=== PATIENT | male | born 1985 | race Caucasian/White ===

== ENCOUNTER 2020-05-19 11:56 | Emergency (ER) | payer SELFPAY ==
[2020-05-19 12:20] VITALS: BP 127/83; PULSE 130; RESP 16; TEMP 36.9; O2SAT 99; BMI 23.6
--- NOTE | 2020-05-19 12:23 | ED_ITS ---
HPI - Dental/Oral General: Stated complaint: dental swelling Time Seen by Provider: 05/19/20 12:05 History of Present Illness: HPI Narrative: Has some swelling right side lower jaw has dental caries this been going on with the swelling for a couple days caries present for a long time MD Complaint: tooth pain Teeth map: 1. Onset (ago): day(s) Duration: constant Severity: moderate Severity scale (1-10): 5 Relieving factors: nothing Exacerbating factors: nothing Context: history of dental caries and poor dental care Associated symptoms: Reports other (Lymphadenopathy right side. Anterior); Denies fever(s) Review of Systems Const: Denies: fever(s), chills or body aches Eyes: Denies: change in vision or blurry vision ENMT: Reports: dental pain and other (Swelling underneath right jaw x2 days); Denies: throat pain or nasal congestion Card: Denies: chest pain or dyspnea on exertion Resp: Denies: dyspnea, productive cough or non-productive cough GI: Denies: abdominal pain, nausea or vomiting : Denies: difficulty urinating Musc: Denies: extremity pain Skin/Breast: Denies: rash Neuro: Denies: headache(s) Psych: Denies: anxiety or depression Kobe/Lymph: Denies: easy bruising Physical Exam Const: COMMON NORMALS: no acute distress, average body habitus and patient oriented x3 HENMT: COMMON NORMALS: normocephalic HEAD & SCALP: normal to inspection and normocephalic FACE & SINUS: normal facial exam TEETH & GINGIVA IMAGES: 1. Caries with lymphadenopathy right side underneath the jaw Eye: COMMON NORMALS: conjunctivae normal GENERAL EYE: appearance normal, both eyes and all related structures CONJUNCTIVA: Yes conjunctivae normal Neck/C-Spine: COMMON NORMALS: no JVD Chest: COMMONS NORMALS: normal inspection of the chest Resp: COMMON NORMALS: normal respiratory effort Cardio: COMMON NORMALS: no JVD Extremity: COMMON NORMALS: normal to inspection and full ROM Neuro: COMMON NORMALS: patient oriented x3 Discharge Plan Discharge Patient Disposition: Home, Self-Care Clinical Impression: Dental abscess Condition: Stable Prescriptions: New clindamycin HCl 300 mg capsule 300 mg PO TID 7 Days Qty: 21 RF: 0 tramadol 50 mg tablet 50 mg PO Q6H PRN (Reason: pain) Qty: 14 RF: 0 Discharge Orders: Discharge Order (Routine); Ordered 05/19/20 Ordered By: Dante Pulido Discharge Diet: Usual diet Discharge Activity: Resume usual activity Patient Instructions: Dental Abscess (ED) Activity Restrictions/Additional Instructions: Follow-up with medical provider as directed. Take medications as prescribed. Return to the ER or your medical provider if condition worsens. Please read and understand discharge instructions. If any questions ask please. Follow-up with dentist soon as possible Coding Level of Care Code ED Side Panel Padder for Kellie Young
[2020-05-19 12:29] VITALS: BP 127/83; PULSE 101; RESP 16; TEMP 36.9; O2SAT 98
== END 2020-05-19 12:31 | disposition home or self-care (01) ==
LOC: ER 16:05
PROVIDERS: Emergency Provider Nurse Practitioner Family
DX: K04.7 Periapical abscess without sinus (principal)
CPT/HCPCS: 12345; 99281; 99282

== ENCOUNTER 2020-05-29 23:34 | Emergency (ER) | payer SELFPAY ==
[2020-05-29 23:42] VITALS: BP 148/91; PULSE 111; RESP 18; TEMP 36.6; O2SAT 98; BMI 24.3
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
[2020-05-30] MEDS: iohexol 300 mg/mL 100 mL Btl IV (00:35)
[2020-05-30 00:54] VITALS: RESP 18
[2020-05-30] MEDS: morphine 4 mg/mL SDV 1 mL IVP (00:54)
[2020-05-30] MEDS: ondansetron 2 mg/ML SDV 2 mL 4 MG IVP (00:54)
[2020-05-30 01:35] VITALS: BP 127/62; PULSE 90; RESP 16; O2SAT 98
== END 2020-05-30 01:36 | disposition home or self-care (01) ==
PROVIDERS: Emergency Provider Physician Assistant
DX: M54.5 Low back pain (principal); S13.9XXA Sprain of joints and ligaments of unspecified parts of neck, initial encounter; R07.81 Pleurodynia; V89.2XXA Person injured in unspecified motor-vehicle accident, traffic, initial encounter
CPT/HCPCS: 12345; 70450; 71260; 72125; 72128; 72131; 74177; 96374; 96375; 99281; 99283; J2270; J2405; Q9967

== ENCOUNTER 2020-10-09 17:59 | Emergency (ER) | payer SELFPAY ==
[2020-10-09 18:15] VITALS: BP 153/119; PULSE 115; RESP 18; TEMP 36.3; O2SAT 99; BMI 25.1
--- NOTE | 2020-10-09 19:30 | W.ED.SKABFB ---
HPI - Skin/Abscess/Foreign Bdy General: Chief complaint: Skin/Abscess/Foreign Body Stated complaint: wounds on both arms Time Seen by Provider: 10/09/20 19:30 History of Present Illness: HPI narrative: Patient is a 34-year-old male comes to the ED with abscess on right and left arms. Patient admits to injecting drugs about 5 days ago. He says where he injected and are aware of these abscesses started to develop. Patient says he opened up abscess on left arm himself with a knife and he says purulent drainage came out. Denies any history of staph or MRSA. Associated symptoms: Deny chills, fever(s), nausea or vomiting Review of Systems Const: Denies: fever(s), chills or fatigue Eyes: Denies: change in vision or eye discomfort ENMT: Denies: throat pain, odynophagia, nasal discharge or nasal congestion Card: Denies: chest pain, palpitations, edema, swelling of feet/ankles, dyspnea on exertion or orthopnea Resp: Denies: dyspnea, productive cough or non-productive cough GI: Denies: abdominal pain, nausea, vomiting, diarrhea, constipation or hematochezia : Denies: flank pain, difficulty urinating, dysuria or hematuria Musc: Denies: neck pain, back pain or extremity swelling Skin/Breast: Reports: new lesions (1 abscess on right forearm and one abscess on left forearm.); Denies: rash Neuro: Denies: headache(s), numbness in extremities or weakness in extremities Physical Exam Const: COMMON NORMALS: patient oriented x3 and alert GENERAL APPEARANCE: cooperative and anxious (Patient appears anxious and is fidgety.) HENMT: COMMON NORMALS: normocephalic HEAD & SCALP: normocephalic MOUTH: Normal oral and palatal mucosa present THROAT: posterior oropharynx normal and uvula midline Eye: COMMON NORMALS: Equal, round and reactive pupils present PUPIL: Yes Equal, round and reactive pupils present Neck/C-Spine: COMMON NORMALS: supple GENERAL: Yes normal visual inspection Resp: COMMON NORMALS: normal respiratory effort, No retractions, No use of accessory muscles and clear to auscultation bilaterally AUSCULTATION: clear to auscultation bilaterally Cardio: COMMON NORMALS: regular rate, regular rhythm, S1 normal heart sound present, S2 normal heart sound present, No gallops present (Cardio), No clicks present (Cardio), No murmurs present (Cardio) and Peripheral pulses 2+ throughout RATE: regular rate RHYTHM: regular rhythm HEART SOUNDS: S1 normal heart sound present and S2 normal heart sound present PERIPHERAL PULSES: Peripheral pulses 2+ throughout GI: COMMON NORMALS: Normal to inspection, nondistended, normoactive bowel sounds present, Soft to palpation, non-tender and no masses PALPATION: Yes Soft to palpation : COMMON NORMALS: Yes no CVA tenderness BLADDER/KIDNEY EXAM: Yes no CVA tenderness Back/Pelvis: COMMON NORMALS: no CVA tenderness Extremity: NARRATIVE EXTREMITY EXAM: On right forearm patient is an abscess with surrounding erythema and warmth. It is fluctuant and not indurated. On the left forearm patient has an abscess that appears to have been opened up and now has 2 cm circular ulcer malodorous purulent drainage seen. There is surrounding erythema and warmth. GENERAL: Yes normal exam except as noted Neuro: COMMON NORMALS: patient oriented x3 and moves all extremities SENSORIUM/ORIENTATION: Yes alert Skin: NARRATIVE SKIN EXAM: On right forearm patient is an abscess with surrounding erythema and warmth. It is fluctuant and not indurated. On the left forearm patient has an abscess that appears to have been opened up and now has 2 cm circular ulcer malodorous purulent drainage seen. There is surrounding erythema and warmth. GENERAL SKIN EXAM: dry skin Procedures Abscess I/D Site: upper extremity Side (if applicable): right Sedation/analgesia: other (morphine 4mg iv) Local Anesthetic: lidocaine 1% and with epi Amount of anesthesia used (mL): 10 Technique: incised with #11 blade Amount of fluid expressed (mL): 8 (Malodorous purulent drainage) Irrigation: Yes Packing used?: none Course Vital Signs: Vital signs: Vital Signs Temperature 97.4 F L 10/09/20 18:15 Pulse Rate 96 10/10/20 00:05 Respiratory Rate 18 10/10/20 00:05 Blood Pressure 128/78 10/10/20 00:05 Pulse Oximetry 97 10/10/20 00:05 MDM - Skin/Abscess/Foreign Bdy MDM Narrative: Medical decision making narrative: Patient is a 34-year-old male comes to the ED with abscess on both right and left forearm. Patient mitts to being an IV drug user and says he recently injected drugs in area where both abscesses developed. patient cut into left forearm abscess himself and purulent drainage came out. He now has a small 2 cm circular ulcer on left forearm. Right forearm has a abscess that is fluctuant and not indurated with warmth, tenderness and erythema present. Abscess I&D was performed on right forearm and malodorous purulent drainage removed. White blood cell count 10.8 and rest of CBC and CMP were unremarkable. Blood cultures in the lab. Abscess culture for right and left forearm abscess pending in lab. Patient was given IV Vanco while here in the ED. I placed an order with home health care case manager patient be referred to wound care clinic. Patient was discharged and put on a prescription of clindamycin. Return to ED precautions given. He was told case management should be in care clinic. Patient understood and agreed with plan. Lab Data: Attestation: I reviewed the patient's lab results. Labs: Lab Results 10/09/20 10/09/20 Range/Units 20:00 20:00 WBC 10.8 H (4.0-10.0) 10^3/ uL RBC 4.06 L (4.1-5.3) 10^6/u L Hgb 12.9 (11.7-16.6) g/dL Hct 38.0 L (42.0-52.0) % MCV 93.6 (80-94) fL MCH 31.8 (28.0-34.0) pg MCHC 33.9 (30.0-36.0) g/dL RDW 11.9 L (12.1-15.1) % Plt Count 334 (130-400) 10^3/c mm MPV 11.1 H (7.4-10.4) fL Neut % (Auto) 73.6 % Lymph % (Auto) 15.7 % Graham % (Auto) 7.6 % Eos % (Auto) 2.2 % Baso % (Auto) 0.6 % Neut # (Auto) 7.93 H (1.8-7.7) 10^3/u L Lymph # (Auto) 1.7 (0.8-4.8) 10^3/u L Graham # (Auto) 0.8 (0.2-0.9) 10^3/u L Eos # (Auto) 0.2 (0.0-0.8) 10^3/u L Baso # (Auto) 0.1 (0.0-0.1) 10^3/u L Nucleated RBC % (a uto) 0 % Nucleated RBCs # 0.0 /100WBC Sodium 141 (136-145) mmol/L Potassium 4.2 (3.5-5.1) mmol/L Chloride 103 (98-107) mmol/L Carbon Dioxide 27 (22-29) mmol/L Anion Gap 15.2 (5-19) BUN 10 (6-20) mg/dL Creatinine 0.9 (0.7-1.2) mg/dL GFR Calculation 97.2 (90-130) mL/min Glucose 154 H (65-115) mg/dL Calculated Osmolal ity 294 (285-295) mOsm/k g Calcium 9.5 (8.5-10.5) mg/dL Total Bilirubin 0.2 (0.15-1.2) mg/dL AST 28 (0-40) U/L ALT 25 (0-41) U/L Alkaline Phosphata se 86 (40-130) IU/L Total Protein 7.4 (6.6-8.7) g/dL Albumin 3.9 (3.5-5.2) g/dL Globulin 3.5 (1.3-4.6) g/dL Discharge Plan Discharge Patient Disposition: Home Clinical Impression: Abscess Condition: Stable Prescriptions: New clindamycin HCl 150 mg capsule 300 mg PO QID 10 Days Qty: 80 RF: 0 No Action cyclobenzaprine 10 mg tablet 10 mg PO TID Qty: 14 RF: 0 ibuprofen 800 mg tablet 800 mg PO Q8H PRN (Reason: pain) Qty: 20 RF: 0 tramadol 50 mg tablet 50 mg PO Q6H PRN (Reason: pain) Qty: 14 RF: 0 Discharge Orders: Discharge ED (Routine); Ordered 10/09/20 Ordered By: Prashanth Starr Discharge Diet: Regular Discharge Activity: Resume usual activity Patient Instructions: Abscess Incision and Drainage (ED), Abscess (ED) Activity Restrictions/Additional Instructions: Follow-up with medical provider as directed. Case management should be contacting you in the next several days to set up an appointment with wound care clinic. Make sure to get antibiotic prescription filled and take full course of antibiotics. Keep abscess on right left arm covered with gauze or bandage. Return to the ER or your medical provider if condition worsens. Please read and understand discharge instructions. If any questions, please ask. Coding Level of Care Code ED Entry Level Installation Technician for [facility] Exam Comprehensive
[2020-10-09 19:45] VITALS: BP 140/88; PULSE 110; RESP 18; O2SAT 99
[2020-10-09 20:33] LABS: Basophils # 0.1 10^3/uL (0.0-0.1); Basophils % 0.6 %; Eosinophils # 0.2 10^3/uL (0.0-0.8); Eosinophils % 2.2 %; Hemoglobin 12.9 g/dL (11.7-16.6); Lymphocytes # 1.7 10^3/uL (0.8-4.8); Lymphocytes % 15.7 %; Mean Corpuscular HGB Conc 33.9 g/dL (30.0-36.0); Mean Corpuscular Hemoglobin 31.8 pg (28.0-34.0); Mean Corpuscular Volume 93.6 fL (80-94); Mean Platelet Volume 11.1 fL (7.4-10.4); Monocytes # 0.8 10^3/uL (0.2-0.9); Monocytes % 7.6 %; Neutrophils # 7.93 10^3/uL (1.8-7.7); Neutrophils % 73.6 %; Nucleated Red Blood Cells % 0 %; Platelet Count 334 10^3/cmm (130-400); Red Blood Count 4.06 10^6/uL (4.1-5.3); Red Cell Distribution Width 11.9 % (12.1-15.1); White Blood Count 10.8 10^3/uL (4.0-10.0)
[2020-10-09] MEDS: sodium chloride 0.9% 1,000 ML 999 ML IV (20:39)
[2020-10-09] MEDS: ondansetron 2 mg/ML SDV 2 mL 4 MG IVP (20:55)
[2020-10-09] MEDS: LORazepam 2 mg/mL INJ 1 mL 1 MG IVP (20:56)
[2020-10-09 20:58] VITALS: RESP 18; O2SAT 98
[2020-10-09] MEDS: morphine 4 mg/mL SDV 1 mL IVP (20:58)
[2020-10-09 21:00] VITALS: BP 122/80; PULSE 98; RESP 17; O2SAT 98
[2020-10-09 21:01] LABS: Albumin Level 3.9 g/dL (3.5-5.2); Alkaline Phosphatase 86 IU/L (40-130); Blood Urea Nitrogen 10 mg/dL (6-20); Calcium 9.5 mg/dL (8.5-10.5); Carbon Dioxide 27 mmol/L (22-29); Chloride 103 mmol/L (98-107); Globulin 3.5 g/dL (1.3-4.6); Glomerular Filtration Rate 97.2 mL/min (90-130); Glucose 154 mg/dL (65-115); Osmolality Calculated 294 mOsm/kg (285-295); Sodium 141 mmol/L (136-145); Total Bilirubin 0.2 mg/dL (0.15-1.2); Total Protein 7.4 g/dL (6.6-8.7)
[2020-10-09 21:02] LABS: Alanine Aminotransferase 25 U/L (0-41); Anion Gap 15.2 (5-19); Aspartate Amino Transferase 28 U/L (0-40); Potassium 4.2 mmol/L (3.5-5.1)
[2020-10-09] MEDS: vancomycin 1,500 MG/300 ML PIGGYBACK 200 MG IV (21:49)
[2020-10-09 21:59] VITALS: BP 127/89; PULSE 94; RESP 18; O2SAT 98
[2020-10-10 00:05] VITALS: BP 128/78; PULSE 96; RESP 18; O2SAT 97
[2020-10-10] MEDS: HYDROcodone-acetaminophen 7.5-325 mg Tablet 2 TAB PO (00:09)
--- NOTE | 2020-10-11 11:11 | DCPLANNER ---
Addendum entered by Vida Lai 10/14/20 08:37: fruit or nut crops farm manager was unable to make contact with patient about appointment. fruit or nut crops farm manager called Wound Care and cancelled the appointment. Original Note: Case manger had message to schedule a follow up appointment for patient with Wound Care. fruit or nut crops farm manager called the Wound Care, spoke with Mari, gave clinic patients information. A follow up appointment was scheduled for Wednesday, October 14, 2020 at 10:[address] Willett. fruit or nut crops farm manager called patient at phone number [phone]. A message was left for patient to return telehealth case manager phone call.
== END 2020-10-10 00:08 | disposition home or self-care (01) ==
PROVIDERS: Emergency Provider Physician Assistant
DX: L02.414 Cutaneous abscess of left upper limb (principal); L02.413 Cutaneous abscess of right upper limb
CPT/HCPCS: 10060; 12345; 80053; 85025; 87040; 87070; 87075; 87077; 87205; 96361; 96365; 96375; 99282; 99284; J2060; J2270; J2405; J3370; J7030